=== PATIENT | female | born 1970 | race Caucasian/White ===

== ENCOUNTER 2016-04-15 19:20 | Emergency (ER) | payer SELFPAY ==
[2016-04-15 19:33] VITALS: BP 148/84; PULSE 88; TEMP 98.5; BMI 40.6
--- NOTE | 2016-04-15 19:43 | EDPRACDOC ---
- General Information Chief Complaint: Headache Stated Complaint: LT EYE STARTED DROOPING HEADACHE Time Seen by Provider: 04/15/16 19:36 Information Source: Patient, Family Mode Of Arrival: Car Home Medications: Home Medications CITALOPRAM (anti-depressant) [Celexa] 10 mg PO QHS 11/13/14 Prednisone [Deltasone, Orasone] 1 tabs PO BID #18 tab 04/15/16 Valacyclovir HCl [Valtrex] 1,000 mg PO TID #21 caplet 04/15/16 Allergies/Adverse Reactions: Allergies Allergy/AdvReac Type Severity Reaction Status Date / Time latex Allergy Severe Rash-Locali Verified 04/15/16 19:34 zed - History of Present Illness Onset: [employer] HPI: PT SAID SHE DEVELOPED A H/A AND RINGING IN HER EARS YESTERDAY. SHE SAID THAT THE LEFT SIDE OF HER FACE IS NOT WORKING. Location: Reports: Generalized Pain Quality: Reports: Mild Relevant History of: Reports: None Associated Signs and Symptoms: Reports: Other (LEFT FACIAL WEAKNESS) ED Past Medical History - Patient Medical History Psychological History: Reports: Depression Systemic History: Denies: Cancer Surgical History: Reports: Other (CSXN TIMES 3). Denies: Hysterectomy - Social Medical History Smoking Status: Never smoker ETOH: None Substance Abuse: None Lives With: Spouse Lives In: Home EDM Review of Systems - Review of Systems ROS Negative Except as Marked: Yes All systems reviewed and were negative except as marked Ears: Tinnitus Neurological: Other (LEFT FACIAL WEAKNESS) - Physical Exam Constitutional: Alert (Awake), No apparent distress Oriented to: Time, Person, Place Last recorded Vital Signs: Last Vital Signs Temp 98.5 F 04/15/16 19:29 Pulse 88 04/15/16 19:29 Resp 20 04/15/16 19:29 BP 148/84 04/15/16 19:29 Pulse Ox 97 04/15/16 19:29 Oxygen Pulse Oxygen Saturation 97 O2 Device Room Air Oxygen Flow Rate Fraction of Inspired Oxygen ( FIO2) - HEENT Head: Normal ( normocephalic) Eye Exam: Normal (PERRL, EOMI, Sclera white) Oropharynx: Normal (Pharynx:Moist without exudate,Gums-no swelling) ENT EAC: Normal TMJ: Normal Nose: No Symptoms Reported (septum midline) Neck: Normal (FROM, trachea at midline) - Respiratory/Cardiovascular Respiratory: Normal - CTA (BBS clear to auscultation without adventitious sounds ) Cardiovascular: Normal (RRR without murmur, gallop or rub) - GI Auscultation: Normal (NABS) Palpation: Normal (Soft,No rebound or guarding, non distended) Tenderness: Non tender Dailey's Sign: Negative - Musculoskeletal Back: Normal (Non-Tender) Extremities: Normal (Normal tone, Pulses 2+ No cyanosis or edema, FROM) - Integumentary Skin: Normal, Warm, Dry Lymphatics: Normal (no adenopathy) - Neurologic Memory Impaired: Normal Cranial Nerve: 7 Cerebellar: Normal Mood Description: Normal Thought: Coherent - Diagnostic Imaging Head Image interpreted by: Radiologist Normal head CT. Decision Time to Discharge: 20:15 - Departure Yes I personally saw and evaluated the patient. Disposition: Home Condition: Fair Final Diagnosis: Headache, Mcknight's palsy Instructions: Mcknight Palsy (ED) Education/Counseling Given To: Patient Education/Counseling Given Regarding: Diagnosis, Treatment, Follow Up Referrals: None,No Provider [Primary Care Provider] - One Week Lon Zelaya DO [Staff Physician] - One Week Prescriptions: Prednisone [Deltasone, Orasone] 1 tabs PO BID #18 tab Valacyclovir HCl [Valtrex] 1,000 mg PO TID #21 caplet
--- NOTE | 2016-04-15 20:08 | DIRPT ---
CLINICAL DATA: LEFT eye drooping since last night at 7:30. Headaches on all. EXAM: CT HEAD WITHOUT CONTRAST TECHNIQUE: Contiguous axial images were obtained from the base of the skull through the vertex without intravenous contrast. COMPARISON: Brain MRI 01/13/2008 FINDINGS: No acute intracranial hemorrhage. No focal mass lesion. No CT evidence of acute infarction. No midline shift or mass effect. No hydrocephalus. Basilar cisterns are patent. Paranasal sinuses and mastoid air cells are clear. IMPRESSION: Normal head CT. Electronically Signed By: Ron Hedrick M.D. On: 04/15/2016 20:05
== END 2016-04-15 20:21 | disposition home or self-care (01) ==
LOC: ED 19:20
DX: R51 Headache (principal); G51.0 Bell's palsy
CPT/HCPCS: 70450; 99282